=== PATIENT | male | born 1955 | race Caucasian/White ===

== ENCOUNTER → 2016-04-03 | Outpatient (CLI) | payer OTHER ==
--- NOTE | 2016-04-03 16:10 | DX ---
Right foot, 3 views History: Bunionectomy. First metatarsal [place] implant. Findings: Oblique osteotomy of right great toe proximal phalanx with staple in place. Defect involvin g the first metatarsal head, consistent with [place] implant. Osteophytes and sclerosis involving the great toe proximal phalanx base, similar to the previous study. Osteotomy line at the great toe franco ins patent without fusion. There is satisfactory alignment. Impression: Postsurgical changes right great toe and first metatarsal with satisfactory alignment.
== END ==
LOC: BMCIMAGING 11:20
PROVIDERS: ATTEND Podiatrist Foot & Ankle Surgery
DX: Z47.89 Encounter for other orthopedic aftercare (principal)

== ENCOUNTER → 2016-04-27 | Outpatient (CLI) | payer OTHER ==
--- NOTE | 2016-04-27 10:04 | DX ---
Right Foot , Three History: Follow-up first metatarsal phalangeal joint cheilotomy and Cartiva implant, Z09 Comparison: April 03, 2010 Findings: A metal bread affixes the transverse osteotomy of the proximal first metatarsal in excellen t anatomic alignment. There is no evidence of hardware fracture or loosening. The osteotomy line is s till visible, but margins are slightly less sharp, consistent with early healing. There is partial la teral bridging callus. The metatarsal phalangeal joint remains normally aligned. A lucent implant in the head of the first metatarsal is stable. There is new narrowing and subtle cortical erosive change along the lateral aspect of the first metatarsal phalangeal joint. Impression: 1. Stable alignment. 2. The proximal phalangeal osteotomy is healing. 3. Progressive degenerative vs early evidence for infection change involving the lateral aspect of th e first metatarsal phalangeal joint. Clinical correlation and follow-up radiography will be useful. A message was left for Dr. Pal at 10:01 AM.
== END ==
LOC: CIMAGING 08:38
PROVIDERS: ATTEND Podiatrist Foot & Ankle Surgery
DX: Z09 Encounter for follow-up examination after completed treatment for conditions other than malignant neoplasm (principal); R93.8 Abnormal findings on diagnostic imaging of other specified body structures; Z98.1 Arthrodesis status
CPT/HCPCS: 73630-PO

== ENCOUNTER → 2016-05-24 | Outpatient (CLI) | payer OTHER | LOC: CIMAGING 08:56 | PROVIDERS: ATTEND Podiatrist Foot & Ankle Surgery | DX: Z09 Encounter for follow-up examination after completed treatment for conditions other than malignant neoplasm (principal); Z98.890 Other specified postprocedural states | CPT/HCPCS: 73630-PO ==

== ENCOUNTER → 2016-06-22 | Outpatient (CLI) | payer OTHER | LOC: CIMAGING 10:09 | PROVIDERS: ATTEND Podiatrist Foot & Ankle Surgery | DX: Z09 Encounter for follow-up examination after completed treatment for conditions other than malignant neoplasm (principal); Z98.890 Other specified postprocedural states | CPT/HCPCS: 73630-PO ==

== ENCOUNTER → 2016-08-22 | Outpatient (CLI) | payer OTHER | LOC: CIMAGING 08-21 13:18 | PROVIDERS: ATTEND Podiatrist Foot & Ankle Surgery | DX: Z09 Encounter for follow-up examination after completed treatment for conditions other than malignant neoplasm (principal); Z98.890 Other specified postprocedural states | CPT/HCPCS: 73630-PO ==